=== PATIENT | female | born 1975 | race Caucasian/White ===

== ENCOUNTER 2016-12-18 03:51 | Emergency (ER) | payer SELFPAY ==
[2016-12-18 04:45] LABS: HEMOGLOBIN 14.2 gm/dl (12.3-15.3); RED BLOOD COUNT 4.93 M/UL (4.00-5.10); WHITE BLOOD COUNT 7.9 K/UL (4.5-11.0)
[2016-12-18 04:56] LABS: BUN/CREATININE RATIO 21 (0-10)
== END 2016-12-18 07:00 | disposition home or self-care (01) ==
LOC: ER1 03:51
PROVIDERS: Family Medicine
DX: R50.9 Fever, unspecified (principal); R00.0 Tachycardia, unspecified; R32 Unspecified urinary incontinence; R42 Dizziness and giddiness; R51 Headache; R73.9 Hyperglycemia, unspecified; F17.210 Nicotine dependence, cigarettes, uncomplicated
CPT/HCPCS: 36415; 71010; 80053; 81001; 82550; 82553; 83605; 83874; 84484; 85025; 87040; 87086; 93005; 96374; 96375; 99284; J0696; J2405; J7050

== ENCOUNTER 2021-03-03 02:21 | Inpatient (IN) | payer OTHER ==
[~2021-03-03] VITALS: Ht 162.6 cm; Wt 111.1 kg
[2021-03-03 03:19] LABS: HEMOGLOBIN 12.6 gm/dl (12.3-15.3); RED BLOOD COUNT 4.73 M/UL (4.00-5.10); WHITE BLOOD COUNT 4.7 K/UL (4.5-11.0)
[2021-03-03 03:29] LABS: BUN/CREATININE RATIO 18 (0-10)
[2021-03-03 07:47] LABS: HEMOGLOBIN 13.1 gm/dl (12.3-15.3); RED BLOOD COUNT 4.94 M/UL (4.00-5.10)
[2021-03-03 07:56] LABS: WHITE BLOOD COUNT 5.9 K/UL (4.5-11.0)
[2021-03-03 08:23] LABS: BUN/CREATININE RATIO 22 (0-10)
[2021-03-04 07:24] LABS: HEMOGLOBIN 11.9 gm/dl (12.3-15.3); RED BLOOD COUNT 4.45 M/UL (4.00-5.10); WHITE BLOOD COUNT 5.9 K/UL (4.5-11.0)
[2021-03-04 07:58] LABS: BUN/CREATININE RATIO 32 (0-10)
[2021-03-05 07:42] LABS: HEMOGLOBIN 12.1 gm/dl (12.3-15.3); RED BLOOD COUNT 4.51 M/UL (4.00-5.10)
[2021-03-05 07:45] LABS: WHITE BLOOD COUNT 8.3 K/UL (4.5-11.0)
[2021-03-05 08:08] LABS: BUN/CREATININE RATIO 31 (0-10)
[2021-03-06 08:10] LABS: BUN/CREATININE RATIO 32 (0-10)
[2021-03-06 08:12] LABS: HEMOGLOBIN 12.2 gm/dl (12.3-15.3); RED BLOOD COUNT 4.61 M/UL (4.00-5.10); WHITE BLOOD COUNT 8.5 K/UL (4.5-11.0)
[2021-03-07 04:48] LABS: RED BLOOD COUNT 4.47 M/UL (4.00-5.10); WHITE BLOOD COUNT 7.9 K/UL (4.5-11.0)
[2021-03-07 05:10] LABS: BUN/CREATININE RATIO 40 (0-10)
[2021-03-08 08:20] LABS: HEMOGLOBIN 12.2 gm/dl (12.3-15.3); RED BLOOD COUNT 4.6 M/UL (4.00-5.10); WHITE BLOOD COUNT 8.4 K/UL (4.5-11.0)
[2021-03-08 08:51] LABS: BUN/CREATININE RATIO 36 (0-10)
[2021-03-09 07:58] LABS: HEMOGLOBIN 11.6 gm/dl (12.3-15.3); RED BLOOD COUNT 4.27 M/UL (4.00-5.10); WHITE BLOOD COUNT 8.5 K/UL (4.5-11.0)
[2021-03-09 08:16] LABS: BUN/CREATININE RATIO 32 (0-10)
[2021-03-10] MEDS ORDERED: HUMALOG 10100 UNITS/ SC (12:18)
[2021-03-10] MEDS ORDERED: LEVOFLOXACIN500 MG PO (12:18)
[2021-03-10] MEDS ORDERED: METFORMIN HCL500 MG PO (12:18)
[2021-03-10] MEDS ORDERED: DEXAMETHASONE1 MG PO (12:18)
[2021-03-10] MEDS ORDERED: LANTUS INS100 UTS/M1 SC (12:18)
[2021-03-10] MEDS ORDERED: LISINOPRIL10 MG PO (12:18)
[2021-03-10] MEDS ORDERED: VENTOLIN HFA 66.7 GM INH (12:18)
--- NOTE | 2021-03-10 13:08 | NUR ---
Patients oxygen saturation 85% on room air resting in bed.
--- NOTE | 2021-03-10 13:16 | NUR ---
OXYGEN THERAPY SET UP WITH [employer] [facility] AT 3L VIA NASAL CANNULA.
== END 2021-03-10 16:52 | disposition home or self-care (01) | DRG 177 ==
LOC: ER1 02:21 → CDU 04:18 → MED SURG 4 04:18
PROVIDERS: Internal Medicine; Physician Assistant; Physician Assistant Medical; ADMIT Internal Medicine
PROC: 3E0333Z Introduction of Anti-inflammatory into Peripheral Vein, Percutaneous Approach (ICD-10-PCS; principal; 2021-03-03)
PROC: XW033E5 Introduction of Remdesivir Anti-infective into Peripheral Vein, Percutaneous Approach, New Technology Group 5 (ICD-10-PCS; 2021-03-03)
PROC: 8E0ZXY6 Isolation (ICD-10-PCS; 2021-03-03)
PROC: 5A0945A Assistance with Respiratory Ventilation, 24-96 Consecutive Hours, High Flow/Velocity Cannula (ICD-10-PCS; 2021-03-05)
PROC: B24BZZ4 Ultrasonography of Heart with Aorta, Transesophageal (ICD-10-PCS; 2021-03-06)
DX: U07.1 COVID-19 (principal); J12.82 Pneumonia due to coronavirus disease 2019; J80 Acute respiratory distress syndrome; J15.9 Unspecified bacterial pneumonia; Z68.41 Body mass index [BMI] 40.0-44.9, adult; E11.65 Type 2 diabetes mellitus with hyperglycemia; I27.20 Pulmonary hypertension, unspecified; E66.9 Obesity, unspecified; M19.90 Unspecified osteoarthritis, unspecified site; Z79.4 Long term (current) use of insulin; Z90.49 Acquired absence of other specified parts of digestive tract; Z80.52 Family history of malignant neoplasm of bladder; Z80.2 Family history of malignant neoplasm of other respiratory and intrathoracic organs; Z82.49 Family history of ischemic heart disease and other diseases of the circulatory system
CPT/HCPCS: ECHO; 36415; 36600; 71045; 80048; 80053; 81001; 82550; 82553; 82728; 82803; 82962; 83036; 83605; 83615; 83735; 83874; 84484; 84703; 85025; 85027; 85379; 86140; 87040; 87086; 93005; 93306; 93970; 94640; 94664; 94760; 96374; 96375; 99285; J0456; J0696; J1100; J1650; J1940; J2185; J7030; U0002